=== PATIENT | female | born 1950 | race Caucasian/White ===

== ENCOUNTER 2018-04-08 19:37 | Inpatient (IN) | payer MEDICARE, MEDICAID ==
[~2018-04-08] VITALS: Ht 154.9 cm; Wt 100.2 kg
[~2018-04-08 19:37] MED LIST: AMLO2.5T45 PO; ATOR40TA70 PO; CLOP75TA16 PO; FLUO-124 PO; GABA-531 PO; GLIP5TAB12 PO; LISI-604 PO; METF10004 PO; OMEP20CA10 PO
[2018-04-08 20:00] VITALS: BP 122/71
[2018-04-08] MEDS ORDERED: DEXTROSE 50% WATER 50ML SYRINGE IV PRN (20:00)
[2018-04-08] MEDS ORDERED: HYDROCODONE/ACETAMINOPHEN 10/325MG TABLET PO PRN (21:00)
[2018-04-08] MEDS ORDERED: ONDANSETRON HCL 4MG/2ML VIAL IV PRN (21:00)
[2018-04-08] MEDS ORDERED: DIPHENHYDRAMINE 50MG/ML VIAL IV PRN (21:00)
[2018-04-08] MEDS ORDERED: IPRATROPIUM/ALBUTEROL 0.5-3(2.5)MG/3ML NEB HHN PRN (21:00)
[2018-04-08] MEDS ORDERED: MORPHINE SULFATE 4 MG/ML CPJ (NOT FOR IM USE) IV PRN (21:00)
[2018-04-08] MEDS: BLOOD SUGAR DIAGNOSTIC STRIP TEST SCH (21:00)
[2018-04-08] MEDS ORDERED: BISACODYL 5MG TABLET PO PRN (21:00)
[2018-04-08] MEDS ORDERED: ACETAMINOPHEN 325MG TABLET PO PRN (21:00)
[2018-04-08] MEDS: ATORVASTATIN CALCIUM 40MG TABLET PO SCH (22:26)
[2018-04-08] MEDS: FLUOXETINE HCL 20MG CAPSULE PO SCH (22:26)
[2018-04-08] MEDS: INSULIN LISPRO 100 UNITS/ML SUBCUT SCH (22:34)
[2018-04-08 23:30] VITALS: BP 120/67
[2018-04-09] MEDS: DEXAMETHASONE 4MG/ML 1ML VIAL IV SCH ×4 (00:50→17:22)
[2018-04-09] MEDS: DEXT 5%/LACTATED RINGERS 1,000 ML IV SCH ×2 (03:23→11:32)
[2018-04-09] MEDS: BLOOD SUGAR DIAGNOSTIC STRIP TEST SCH ×4 (06:21→21:13)
[2018-04-09] MEDS: INSULIN LISPRO 100 UNITS/ML SUBCUT SCH ×4 (06:47→22:03)
[2018-04-09] MEDS: OMEPRAZOLE 20MG CAPSULE EXTENDED RELEASE PO SCH (07:43)
[2018-04-09 08:00] VITALS: BP 147/84
[2018-04-09] MEDS: GABAPENTIN 300MG CAPSULE PO SCH ×3 (09:12→17:22)
[2018-04-09] MEDS: DOCUSATE SODIUM 100MG CAPSULE PO SCH ×2 (09:12→17:22)
[2018-04-09] MEDS: FLUOXETINE HCL 20MG CAPSULE PO SCH ×2 (09:12→21:13)
[2018-04-09] MEDS: LISINOPRIL 20MG TABLET PO SCH (09:13)
[2018-04-09] MEDS: AMLODIPINE 2.5MG TABLET PO SCH (09:14)
[2018-04-09 11:36] LABS: BASOPHILS % 0.4 % (0.0-2.0); HEMATOCRIT. 38.3 % (36.0-48.0); HEMOGLOBIN. 12.6 g/dL (12.0-16.0); LYMPHOCYTES % 10.6 % (20.0-50.0); MEAN CORPUSCULAR HEMOGLOBIN 27.8 pg (28.0-32.0); MEAN CORPUSCULAR VOLUME 84.6 fL (81.0-99.0); MEAN PLATELET VOLUME 7.8 fl (7.4-10.4); MONOCYTES % 4.7 % (2.0-8.0); NEUTROPHILS % 84.3 % (40.0-76.0); PLATELET 290 x1000/uL (130-400); RED BLOOD CELL COUNT 4.53 mill/uL (4.2-5.4)
[2018-04-09 11:39] LABS: CHLORIDE 101 mEq/L (98-107)
[2018-04-09 20:00] VITALS: BP 129/71
[2018-04-09] MEDS: ATORVASTATIN CALCIUM 40MG TABLET PO SCH (21:13)
[2018-04-09] MEDS ORDERED: INSULIN LISPRO 100 UNITS/ML SUBCUT NR (21:30)
[2018-04-10] MEDS: BLOOD SUGAR DIAGNOSTIC STRIP TEST SCH ×4 (05:52→21:55)
[2018-04-10] MEDS: INSULIN LISPRO 100 UNITS/ML SUBCUT SCH ×4 (06:38→21:57)
[2018-04-10 07:47] LABS: BASOPHILS % 0.6 % (0.0-2.0); EOSINOPHILS % 0.1 % (0.0-5.0); HEMATOCRIT. 37.8 % (36.0-48.0); HEMOGLOBIN. 12.3 g/dL (12.0-16.0); LYMPHOCYTES % 29.4 % (20.0-50.0); MEAN CORPUSCULAR HEMOGLOBIN 27.5 pg (28.0-32.0); MEAN CORPUSCULAR VOLUME 84.5 fL (81.0-99.0); MEAN PLATELET VOLUME 7.7 fl (7.4-10.4); MONOCYTES % 8.6 % (2.0-8.0); NEUTROPHILS % 61.3 % (40.0-76.0); PLATELET 293 x1000/uL (130-400); RED BLOOD CELL COUNT 4.48 mill/uL (4.2-5.4); RED CELL DISTRIBUTION WIDTH 14.3 % (11.6-14.6)
[2018-04-10 08:00] VITALS: BP 149/82
[2018-04-10 08:06] LABS: CHLORIDE 105 mEq/L (98-107)
[2018-04-10] MEDS: FLUOXETINE HCL 20MG CAPSULE PO SCH ×2 (09:05→21:55)
[2018-04-10] MEDS: GABAPENTIN 300MG CAPSULE PO SCH ×3 (09:05→17:55)
[2018-04-10] MEDS: OMEPRAZOLE 20MG CAPSULE EXTENDED RELEASE PO SCH (09:05)
[2018-04-10] MEDS: DOCUSATE SODIUM 100MG CAPSULE PO SCH ×2 (09:05→17:55)
[2018-04-10] MEDS: DEXAMETHASONE 4MG/ML 1ML VIAL IV SCH ×2 (09:06→17:55)
[2018-04-10] MEDS: AMLODIPINE 2.5MG TABLET PO SCH (10:28)
[2018-04-10] MEDS: LISINOPRIL 20MG TABLET PO SCH (10:29)
[2018-04-10 20:00] VITALS: BP 112/79
[2018-04-10] MEDS: ATORVASTATIN CALCIUM 40MG TABLET PO SCH (21:55)
[2018-04-11] MEDS: BLOOD SUGAR DIAGNOSTIC STRIP TEST SCH ×4 (05:36→21:00)
[2018-04-11] MEDS: OMEPRAZOLE 20MG CAPSULE EXTENDED RELEASE PO SCH (06:19)
[2018-04-11] MEDS: INSULIN LISPRO 100 UNITS/ML SUBCUT SCH ×4 (06:20→23:26)
[2018-04-11 07:35] LABS: BASOPHILS % 0.1 % (0.0-2.0); EOSINOPHILS % 0.6 % (0.0-5.0); HEMATOCRIT. 39.8 % (36.0-48.0); HEMOGLOBIN. 13.1 g/dL (12.0-16.0); LYMPHOCYTES % 31.9 % (20.0-50.0); MEAN CORPUSCULAR HEMOGLOBIN 27.8 pg (28.0-32.0); MEAN CORPUSCULAR VOLUME 84.7 fL (81.0-99.0); MEAN PLATELET VOLUME 7.5 fl (7.4-10.4); MONOCYTES % 6.9 % (2.0-8.0); NEUTROPHILS % 60.5 % (40.0-76.0); PLATELET 311 x1000/uL (130-400); RED BLOOD CELL COUNT 4.69 mill/uL (4.2-5.4); RED CELL DISTRIBUTION WIDTH 13.8 % (11.6-14.6)
[2018-04-11 07:46] LABS: CHLORIDE 101 mEq/L (98-107)
[2018-04-11 08:00] VITALS: BP 124/82
[2018-04-11] MEDS: LISINOPRIL 20MG TABLET PO SCH (09:07)
[2018-04-11] MEDS: DEXAMETHASONE 4MG/ML 1ML VIAL IV SCH ×2 (09:07→17:13)
[2018-04-11] MEDS: AMLODIPINE 2.5MG TABLET PO SCH (09:08)
[2018-04-11] MEDS: DOCUSATE SODIUM 100MG CAPSULE PO SCH ×2 (09:08→17:13)
[2018-04-11] MEDS: GABAPENTIN 300MG CAPSULE PO SCH ×3 (09:08→17:13)
[2018-04-11] MEDS: FLUOXETINE HCL 20MG CAPSULE PO SCH ×2 (09:08→23:24)
[2018-04-11 20:00] VITALS: BP 111/76
[2018-04-11] MEDS ORDERED: LORAZEPAM 0.5MG TABLET PO PRN (20:30)
[2018-04-11] MEDS: ATORVASTATIN CALCIUM 40MG TABLET PO SCH (23:24)
[2018-04-12] MEDS: BLOOD SUGAR DIAGNOSTIC STRIP TEST SCH ×4 (06:07→21:00)
[2018-04-12] MEDS: OMEPRAZOLE 20MG CAPSULE EXTENDED RELEASE PO SCH (06:12)
[2018-04-12 07:22] LABS: BASOPHILS % 0.2 % (0.0-2.0); EOSINOPHILS % 0.7 % (0.0-5.0); HEMATOCRIT. 39.2 % (36.0-48.0); HEMOGLOBIN. 12.8 g/dL (12.0-16.0); LYMPHOCYTES % 27.2 % (20.0-50.0); MEAN CORPUSCULAR HEMOGLOBIN 27.4 pg (28.0-32.0); MEAN CORPUSCULAR VOLUME 83.8 fL (81.0-99.0); MEAN PLATELET VOLUME 7.4 fl (7.4-10.4); MONOCYTES % 6.7 % (2.0-8.0); NEUTROPHILS % 65.2 % (40.0-76.0); PLATELET 305 x1000/uL (130-400); RED BLOOD CELL COUNT 4.68 mill/uL (4.2-5.4); RED CELL DISTRIBUTION WIDTH 14.1 % (11.6-14.6)
[2018-04-12 07:26] LABS: CHLORIDE 102 mEq/L (98-107)
[2018-04-12 08:00] VITALS: BP 138/63
[2018-04-12] MEDS: INSULIN LISPRO 100 UNITS/ML SUBCUT SCH ×4 (09:00→22:16)
[2018-04-12] MEDS: LISINOPRIL 20MG TABLET PO SCH (10:04)
[2018-04-12] MEDS: FLUOXETINE HCL 20MG CAPSULE PO SCH ×2 (10:04→22:14)
[2018-04-12] MEDS: DOCUSATE SODIUM 100MG CAPSULE PO SCH ×2 (10:04→17:50)
[2018-04-12] MEDS: AMLODIPINE 2.5MG TABLET PO SCH (10:05)
[2018-04-12] MEDS: GABAPENTIN 300MG CAPSULE PO SCH ×3 (10:05→17:50)
[2018-04-12 20:00] VITALS: BP 97/64
[2018-04-12] MEDS: ATORVASTATIN CALCIUM 40MG TABLET PO SCH (22:14)
[2018-04-13] MEDS: BLOOD SUGAR DIAGNOSTIC STRIP TEST SCH ×3 (06:05→17:00)
[2018-04-13] MEDS: INSULIN LISPRO 100 UNITS/ML SUBCUT SCH ×3 (06:22→17:00)
[2018-04-13 07:42] LABS: BASOPHILS % 0.2 % (0.0-2.0); EOSINOPHILS % 1.4 % (0.0-5.0); HEMATOCRIT. 38.5 % (36.0-48.0); HEMOGLOBIN. 12.7 g/dL (12.0-16.0); MEAN CORPUSCULAR HEMOGLOBIN 27.6 pg (28.0-32.0); MEAN CORPUSCULAR VOLUME 84.1 fL (81.0-99.0); MEAN PLATELET VOLUME 7.5 fl (7.4-10.4); MONOCYTES % 6.1 % (2.0-8.0); NEUTROPHILS % 61.3 % (40.0-76.0); PLATELET 299 x1000/uL (130-400); RED BLOOD CELL COUNT 4.58 mill/uL (4.2-5.4); RED CELL DISTRIBUTION WIDTH 14.2 % (11.6-14.6)
[2018-04-13 08:00] VITALS: BP 107/71
[2018-04-13 08:00] LABS: CHLORIDE 101 mEq/L (98-107)
[2018-04-13] MEDS ORDERED: FAMOTIDINE 20MG TABLET PO SCH (09:00)
[2018-04-13] MEDS: AMLODIPINE 2.5MG TABLET PO SCH (10:03)
[2018-04-13] MEDS: GABAPENTIN 300MG CAPSULE PO SCH ×3 (10:03→17:03)
[2018-04-13] MEDS: FLUOXETINE HCL 20MG CAPSULE PO SCH (10:04)
[2018-04-13] MEDS: DOCUSATE SODIUM 100MG CAPSULE PO SCH ×2 (10:04→17:04)
[2018-04-13] MEDS: LISINOPRIL 20MG TABLET PO SCH (10:04)
[2018-04-13] MEDS ORDERED: NA PHOS,M-B/NA PHOS,DI-BA ENEMA 118ML PR NR (13:30)
[2018-04-13] MEDS: POLYETHYLENE GLYCOL 3350 (17GM) 1 DOSE PACK PO SCH ×2 (13:30→17:04)
[2018-04-13 17:09] VITALS: BP 123/80
== END 2018-04-13 17:38 | disposition home health service (06) | DRG 551 ==
PROVIDERS: ADMIT Psychiatry & Neurology Neurology; ATTEND Internal Medicine
DX: M47.12 Other spondylosis with myelopathy, cervical region (principal); G82.50 Quadriplegia, unspecified; G95.89 Other specified diseases of spinal cord; Z68.41 Body mass index [BMI] 40.0-44.9, adult; G95.29 Other cord compression; M48.02 Spinal stenosis, cervical region; I10 Essential (primary) hypertension; E11.9 Type 2 diabetes mellitus without complications; F41.9 Anxiety disorder, unspecified; F32.9 Major depressive disorder, single episode, unspecified; E66.01 Morbid (severe) obesity due to excess calories; M19.90 Unspecified osteoarthritis, unspecified site; M79.609 Pain in unspecified limb; R20.2 Paresthesia of skin; M47.22 Other spondylosis with radiculopathy, cervical region; R26.9 Unspecified abnormalities of gait and mobility; D72.829 Elevated white blood cell count, unspecified; G89.29 Other chronic pain; Z98.1 Arthrodesis status; Z90.710 Acquired absence of both cervix and uterus; Z86.73 Personal history of transient ischemic attack (TIA), and cerebral infarction without residual deficits; Z79.899 Other long term (current) drug therapy; Z79.84 Long term (current) use of oral hypoglycemic drugs; Z79.02 Long term (current) use of antithrombotics/antiplatelets
CPT/HCPCS: 36415; 80048; 82962; 83735; 85025; 92610; 93970; 97110; 97116; 97163; 97167; 97530; 97535; C1893; J1100; J1815; J7121; L0172; A5200

== ENCOUNTER → 2018-08-26 | Outpatient (CLI) | payer MEDICARE, MEDICAID ==
[~2018-08-26] MED LIST changes: +CHOL200074 PO; +METF-416 PO; -METF10004 PO; +OMEG-31 PO
[2018-08-26 10:08] LABS: BASOPHILS % 0.9 % (0.0-2.0); EOSINOPHILS % 1.5 % (0.0-5.0); HEMATOCRIT. 40.2 % (36.0-48.0); HEMOGLOBIN. 13.4 g/dL (12.0-16.0); LYMPHOCYTES % 31.3 % (20.0-50.0); MEAN CORPUSCULAR VOLUME 84.3 fL (81.0-99.0); MEAN PLATELET VOLUME 7.4 fl (7.4-10.4); NEUTROPHILS % 59.3 % (40.0-76.0); PLATELET 308 x1000/uL (130-400); RED BLOOD CELL COUNT 4.77 mill/uL (4.2-5.4); RED CELL DISTRIBUTION WIDTH 14.4 % (11.6-14.6)
[2018-08-26 10:17] LABS: INR 1.1; PARTIAL THROMBOPLASTIN TIME 27.2 sec (23.4-31.0); PROTHROMBIN TIME 10.7 sec (9.1-11.1)
[2018-08-26 10:33] LABS: CLARITY URINE CLEAR (CLEAR); COLOR URINE YELLOW (YELLOW); KETONES URINE NEGATIVE (NEGATIVE); LEUKOCYTE ESTERASE URINE NEGATIVE (NEGATIVE); NITRITE URINE NEGATIVE (NEGATIVE); OCCULT BLOOD URINE NEGATIVE (NEGATIVE); PROTEIN URINE NEGATIVE (NEGATIVE); SPECIFIC GRAVITY URINE 1.021 (1.005-1.030); UROBILINOGEN URINE 0.2 E.U./dL (0.2-1.0)
[2018-08-26 11:21] LABS: CHLORIDE 102 mEq/L (98-107)
== END | disposition home or self-care (01) ==
LOC: LAB 09:20
PROVIDERS: ATTEND Neurological Surgery
DX: M43.16 Spondylolisthesis, lumbar region (principal); I10 Essential (primary) hypertension; E11.9 Type 2 diabetes mellitus without complications; Z79.899 Other long term (current) drug therapy
CPT/HCPCS: 36415; 80048

== ENCOUNTER 2018-09-10 17:30 | Inpatient (IN) | payer MEDICARE, OTHER ==
[~2018-09-10] VITALS: Ht 154.9 cm; Wt 98.9 kg
[2018-09-10 19:50] VITALS: BP 157/80
[2018-09-10 20:00] VITALS: BP 157/80
[2018-09-10] MEDS ORDERED: LACTULOSE 20G/30ML UDC PO PRN (20:00)
[2018-09-10] MEDS ORDERED: DEXTROSE 50% WATER 50ML SYRINGE IV PRN (20:00)
[2018-09-10] MEDS ORDERED: ONDANSETRON HCL 4MG TABLET PO PRN (20:00)
[2018-09-10] MEDS ORDERED: CLONIDINE 0.1MG TABLET PO PRN (20:00)
[2018-09-10] MEDS ORDERED: DIPHENHYDRAMINE 25MG CAPSULE PO PRN (20:00)
[2018-09-10] MEDS: MORPHINE SULFATE 4 MG/ML CPJ (NOT FOR IM USE) IV PRN (20:40)
[2018-09-10] MEDS: GABAPENTIN 300MG CAPSULE PO SCH (21:15)
[2018-09-10] MEDS: OMEPRAZOLE 20MG CAPSULE EXTENDED RELEASE PO SCH (21:15)
[2018-09-10] MEDS: BLOOD SUGAR DIAGNOSTIC STRIP TEST SCH (21:20)
[2018-09-10] MEDS: INSULIN LISPRO 100 UNITS/ML SUBCUT SCH (21:36)
[2018-09-10 21:40] VITALS: BP 146/59
[2018-09-10 23:46] LABS: CLARITY URINE CLOUDY (CLEAR); COLOR URINE YELLOW (YELLOW); KETONES URINE NEGATIVE (NEGATIVE); LEUKOCYTE ESTERASE URINE TRACE (NEGATIVE); NITRITE URINE NEGATIVE (NEGATIVE); OCCULT BLOOD URINE 1+ (NEGATIVE); PH URINE 8.5 (4.5-8.0); PROTEIN URINE 1+ (NEGATIVE); SPECIFIC GRAVITY URINE 1.015 (1.005-1.030)
[2018-09-11] MEDS: GABAPENTIN 300MG CAPSULE PO SCH ×3 (05:34→21:15)
[2018-09-11] MEDS: BLOOD SUGAR DIAGNOSTIC STRIP TEST SCH ×4 (06:20→20:35)
[2018-09-11] MEDS: INSULIN LISPRO 100 UNITS/ML SUBCUT SCH ×4 (06:39→20:35)
[2018-09-11 08:00] VITALS: BP 135/75
[2018-09-11 08:25] LABS: BASOPHILS % 0.6 % (0.0-2.0); EOSINOPHILS % 0.9 % (0.0-5.0); HEMATOCRIT. 34.1 % (36.0-48.0); HEMOGLOBIN. 11.3 g/dL (12.0-16.0); LYMPHOCYTES % 19.1 % (20.0-50.0); MEAN CORPUSCULAR HEMOGLOBIN 27.6 pg (28.0-32.0); MEAN CORPUSCULAR VOLUME 83.6 fL (81.0-99.0); MEAN PLATELET VOLUME 7.6 fl (7.4-10.4); MONOCYTES % 8.1 % (2.0-8.0); NEUTROPHILS % 71.3 % (40.0-76.0); PLATELET 262 x1000/uL (130-400); RED BLOOD CELL COUNT 4.08 mill/uL (4.2-5.4); RED CELL DISTRIBUTION WIDTH 14.2 % (11.6-14.6)
[2018-09-11] MEDS: FLUOXETINE HCL 20MG CAPSULE PO SCH (08:58)
[2018-09-11] MEDS: OMEPRAZOLE 20MG CAPSULE EXTENDED RELEASE PO SCH (08:58)
[2018-09-11] MEDS: DOCUSATE SODIUM 250MG CAPSULE PO SCH (08:59)
[2018-09-11 09:05] LABS: CHLORIDE 100 mEq/L (98-107)
[2018-09-11] MEDS: MORPHINE SULFATE 4 MG/ML CPJ (NOT FOR IM USE) IV PRN (10:58)
[2018-09-11] MEDS ORDERED: POTASSIUM CHLORIDE 20MEQ TABLET SR PO NR ×2 (11:15)
[2018-09-11] MEDS ORDERED: NA PHOS,M-B/NA PHOS,DI-BA ENEMA 118ML PR NR (11:29)
[2018-09-11] MEDS: LACTULOSE 20G/30ML UDC PO SCH ×3 (12:00→20:00)
[2018-09-11 20:00] VITALS: BP 121/79
[2018-09-11] MEDS: FAMOTIDINE 20MG TABLET PO SCH (20:35)
[2018-09-12] MEDS: GABAPENTIN 300MG CAPSULE PO SCH ×3 (06:07→21:45)
[2018-09-12] MEDS: BLOOD SUGAR DIAGNOSTIC STRIP TEST SCH ×4 (06:10→21:46)
[2018-09-12] MEDS: INSULIN LISPRO 100 UNITS/ML SUBCUT SCH ×4 (06:41→21:46)
[2018-09-12 08:00] VITALS: BP 133/51
[2018-09-12] MEDS: FLUOXETINE HCL 20MG CAPSULE PO SCH (09:07)
[2018-09-12] MEDS: DOCUSATE SODIUM 250MG CAPSULE PO SCH (09:07)
[2018-09-12] MEDS: FAMOTIDINE 20MG TABLET PO SCH ×2 (10:21→21:45)
[2018-09-12 15:43] LABS: BASOPHILS % 0.6 % (0.0-2.0); EOSINOPHILS % 2.2 % (0.0-5.0); HEMATOCRIT. 33.2 % (36.0-48.0); HEMOGLOBIN. 10.9 g/dL (12.0-16.0); LYMPHOCYTES % 24.6 % (20.0-50.0); MEAN CORPUSCULAR HEMOGLOBIN 27.4 pg (28.0-32.0); MEAN CORPUSCULAR VOLUME 83.2 fL (81.0-99.0); MEAN PLATELET VOLUME 7.3 fl (7.4-10.4); NEUTROPHILS % 64.6 % (40.0-76.0); PLATELET 302 x1000/uL (130-400); RED BLOOD CELL COUNT 3.99 mill/uL (4.2-5.4); RED CELL DISTRIBUTION WIDTH 14.2 % (11.6-14.6)
[2018-09-12 15:44] LABS: CHLORIDE 102 mEq/L (98-107)
[2018-09-12] MEDS ORDERED: DEXTROSE 50% WATER 50ML SYRINGE IV PRN (16:15)
[2018-09-12] MEDS ORDERED: LACTULOSE 20G/30ML UDC PO PRN (17:30)
[2018-09-12 20:00] VITALS: BP 124/43
[2018-09-13] MEDS: HYDROCODONE/ACETAMINOPHEN 5/325MG TABLET PO PRN (06:00)
[2018-09-13] MEDS: GABAPENTIN 300MG CAPSULE PO SCH ×3 (06:10→21:03)
[2018-09-13] MEDS: BLOOD SUGAR DIAGNOSTIC STRIP TEST SCH ×4 (06:11→21:00)
[2018-09-13 07:34] LABS: BASOPHILS % 0.5 % (0.0-2.0); EOSINOPHILS % 2.1 % (0.0-5.0); HEMATOCRIT. 32.2 % (36.0-48.0); HEMOGLOBIN. 10.7 g/dL (12.0-16.0); LYMPHOCYTES % 21.2 % (20.0-50.0); MEAN CORPUSCULAR HEMOGLOBIN 27.6 pg (28.0-32.0); MEAN CORPUSCULAR VOLUME 83.3 fL (81.0-99.0); MEAN PLATELET VOLUME 7.4 fl (7.4-10.4); MONOCYTES % 7.9 % (2.0-8.0); NEUTROPHILS % 68.3 % (40.0-76.0); PLATELET 312 x1000/uL (130-400); RED BLOOD CELL COUNT 3.87 mill/uL (4.2-5.4); RED CELL DISTRIBUTION WIDTH 14.3 % (11.6-14.6)
[2018-09-13 07:37] LABS: CHLORIDE 103 mEq/L (98-107)
[2018-09-13] MEDS: INSULIN LISPRO 100 UNITS/ML SUBCUT SCH ×4 (07:38→21:10)
[2018-09-13 07:50] VITALS: BP 150/75
[2018-09-13] MEDS: DOCUSATE SODIUM 250MG CAPSULE PO SCH (08:13)
[2018-09-13] MEDS: FLUOXETINE HCL 20MG CAPSULE PO SCH (08:14)
[2018-09-13] MEDS: FAMOTIDINE 20MG TABLET PO SCH ×2 (08:14→21:03)
[2018-09-13 20:00] VITALS: BP 112/67
[2018-09-14] MEDS: GABAPENTIN 300MG CAPSULE PO SCH ×3 (06:01→20:03)
[2018-09-14] MEDS: ACETAMINOPHEN 325MG TABLET PO PRN (06:04)
[2018-09-14] MEDS: BLOOD SUGAR DIAGNOSTIC STRIP TEST SCH ×4 (06:05→20:04)
[2018-09-14] MEDS: INSULIN LISPRO 100 UNITS/ML SUBCUT SCH ×4 (06:15→20:03)
[2018-09-14 08:13] VITALS: BP 138/75
[2018-09-14] MEDS: FAMOTIDINE 20MG TABLET PO SCH ×2 (08:47→20:03)
[2018-09-14] MEDS: FLUOXETINE HCL 20MG CAPSULE PO SCH (08:47)
[2018-09-14] MEDS: DOCUSATE SODIUM 250MG CAPSULE PO SCH (08:48)
[2018-09-14 20:26] VITALS: BP 127/78
[2018-09-15] MEDS: GABAPENTIN 300MG CAPSULE PO SCH ×3 (06:42→20:35)
[2018-09-15] MEDS: ACETAMINOPHEN 325MG TABLET PO PRN (06:42)
[2018-09-15] MEDS: BLOOD SUGAR DIAGNOSTIC STRIP TEST SCH ×4 (06:42→20:28)
[2018-09-15] MEDS: INSULIN LISPRO 100 UNITS/ML SUBCUT SCH ×4 (06:43→20:34)
[2018-09-15 07:42] LABS: CHLORIDE 102 mEq/L (98-107)
[2018-09-15 07:44] LABS: BASOPHILS % 0.6 % (0.0-2.0); EOSINOPHILS % 2.5 % (0.0-5.0); HEMATOCRIT. 33.2 % (36.0-48.0); HEMOGLOBIN. 10.9 g/dL (12.0-16.0); LYMPHOCYTES % 22.6 % (20.0-50.0); MEAN CORPUSCULAR HEMOGLOBIN 27.3 pg (28.0-32.0); MEAN CORPUSCULAR VOLUME 83.3 fL (81.0-99.0); MEAN PLATELET VOLUME 7.1 fl (7.4-10.4); MONOCYTES % 6.9 % (2.0-8.0); NEUTROPHILS % 67.4 % (40.0-76.0); PLATELET 396 x1000/uL (130-400); RED BLOOD CELL COUNT 3.99 mill/uL (4.2-5.4); RED CELL DISTRIBUTION WIDTH 14.3 % (11.6-14.6)
[2018-09-15 08:00] VITALS: BP 127/64
[2018-09-15] MEDS: FAMOTIDINE 20MG TABLET PO SCH ×2 (09:55→20:28)
[2018-09-15] MEDS: DOCUSATE SODIUM 250MG CAPSULE PO SCH (09:55)
[2018-09-15] MEDS: FLUOXETINE HCL 20MG CAPSULE PO SCH (09:55)
[2018-09-15] MEDS: HYDROCODONE/ACETAMINOPHEN 5/325MG TABLET PO PRN (17:30)
[2018-09-15 20:00] VITALS: BP 139/76
[2018-09-16] MEDS: BLOOD SUGAR DIAGNOSTIC STRIP TEST SCH ×2 (06:28→11:37)
[2018-09-16] MEDS: GABAPENTIN 300MG CAPSULE PO SCH (06:28)
[2018-09-16] MEDS: INSULIN LISPRO 100 UNITS/ML SUBCUT SCH ×2 (06:41→11:51)
[2018-09-16] MEDS: FLUOXETINE HCL 20MG CAPSULE PO SCH (07:58)
[2018-09-16] MEDS: FAMOTIDINE 20MG TABLET PO SCH (07:58)
[2018-09-16] MEDS: DOCUSATE SODIUM 250MG CAPSULE PO SCH (07:58)
[2018-09-16] MEDS: ACETAMINOPHEN 325MG TABLET PO PRN (07:59)
[2018-09-16 08:00] VITALS: BP 147/77
[2018-09-16 09:23] LABS: HEMOGLOBIN. 10.9 g/dL (12.0-16.0); RED BLOOD CELL COUNT 3.99 mill/uL (4.2-5.4)
[2018-09-16 09:24] LABS: BASOPHILS % 0.3 % (0.0-2.0); EOSINOPHILS % 2.7 % (0.0-5.0); HEMATOCRIT. 33.4 % (36.0-48.0); LYMPHOCYTES % 27.8 % (20.0-50.0); MEAN CORPUSCULAR HEMOGLOBIN 27.3 pg (28.0-32.0); MEAN CORPUSCULAR VOLUME 83.6 fL (81.0-99.0); MEAN PLATELET VOLUME 7.2 fl (7.4-10.4); MONOCYTES % 8.5 % (2.0-8.0); NEUTROPHILS % 60.7 % (40.0-76.0); PLATELET 425 x1000/uL (130-400); RED CELL DISTRIBUTION WIDTH 14.3 % (11.6-14.6)
[2018-09-16 10:53] VITALS: BP 147/77
[2018-09-16 12:36] LABS: CHLORIDE 104 mEq/L (98-107)
== END 2018-09-16 13:13 | disposition home health service (06) | DRG 552 ==
PROVIDERS: ADMIT Psychiatry & Neurology Neurology; ATTEND Internal Medicine
DX: M43.16 Spondylolisthesis, lumbar region (principal); G82.20 Paraplegia, unspecified; K59.2 Neurogenic bowel, not elsewhere classified; F33.1 Major depressive disorder, recurrent, moderate; Z68.41 Body mass index [BMI] 40.0-44.9, adult; M48.061 Spinal stenosis, lumbar region without neurogenic claudication; R26.9 Unspecified abnormalities of gait and mobility; R53.81 Other malaise; R20.0 Anesthesia of skin; F41.9 Anxiety disorder, unspecified; D64.9 Anemia, unspecified; E87.6 Hypokalemia; K59.00 Constipation, unspecified; R50.82 Postprocedural fever; D72.829 Elevated white blood cell count, unspecified; E66.01 Morbid (severe) obesity due to excess calories; I10 Essential (primary) hypertension; G47.33 Obstructive sleep apnea (adult) (pediatric); E11.9 Type 2 diabetes mellitus without complications; N31.9 Neuromuscular dysfunction of bladder, unspecified; Z86.73 Personal history of transient ischemic attack (TIA), and cerebral infarction without residual deficits; Z82.49 Family history of ischemic heart disease and other diseases of the circulatory system; Z90.710 Acquired absence of both cervix and uterus; Z79.84 Long term (current) use of oral hypoglycemic drugs; Z98.1 Arthrodesis status
CPT/HCPCS: 36415; 71046; 80048; 82962; 84134; 93970; 97110; 97116; 97162; 97166; 97530; 97535; J1815; J2270; A4315